=== PATIENT | male | born 1955 | race Caucasian/White ===

== ENCOUNTER 2017-11-12 21:35 | Emergency (ER) | payer OTHER, MEDICARE ==
[~2017-11-12] VITALS: Ht 177.8 cm; Wt 113.4 kg
--- NOTE | 2017-11-12 21:38 | ED GENERAL ADULT ---
History of Present Illness General Chief Complaint: ETOH/Drug Related Complaint Stated Complaint: HIGHWATCH CLEARANCE Source: patient Exam Limitations: no limitations Vital Signs & Intake/Output Vital Signs & Intake/Output Vital Signs Date Time Temp Pulse Resp B/P B/P Pulse O2 O2 Flow FiO2 Mean Ox Delivery Rate 11/13 0726 97.2 75 18 159/79 96 Room Air 11/13 0722 97.2 75 18 159/79 11/13 0515 98.4 90 17 142/80 94 Room Air 11/13 0510 98.4 90 17 142/80 11/13 0310 97.8 93 17 134/82 11/13 0307 97.8 93 17 134/82 93 Room Air 11/13 0034 97.9 83 18 151/88 11/13 0034 97.9 83 18 151/88 95 Room Air 11/13 0032 97 Room Air 11/13 0005 97.0 81 20 166/95 11/13 0005 97.0 81 21 166/95 92 Room Air 11/12 2140 96.4 89 18 169/81 96 Room Air ED Intake and Output 11/13 0000 11/12 1200 Intake Total Output Total Balance Patient 250 lb Weight Weight Reported by Patient Measurement Method Allergies Coded Allergies: No Known Allergies (11/12/17) Triage Nurses Notes Reviewed? yes HPI: Patient has been taking between 1 and 2 mg of Xanax daily for the past few years. Patient wants to stop them so he went [facility] the patient was sent here for evaluation. Patient denies any suicidal or homicidal ideations. Patient denies any coingestion. (Agustina GUAMAN,Derrick Alcaraz) Past History Travel History Traveled to [place] past 21 day No Medical History Any Pertinent Medical History? see below for history Cardiovascular: hypertension Gastrointestinal: GERD Endocrine: diabetes Surgical History Surgical History: RADICAL PROSTECTOMY Psychosocial History Tobacco Use: Never used ETOH Use: denies use Illicit Drug Use: benzodiazepines Family History Hx Contributory? No (Agustina GUAMAN,Derrick Alcaraz) Review of Systems Review of Systems Constitutional: Reports: no symptoms. EENTM: Reports: no symptoms. Respiratory: Reports: no symptoms. Cardiovascular: Reports: no symptoms. GI: Reports: no symptoms. Genitourinary: Reports: no symptoms. Musculoskeletal: Reports: no symptoms. Skin: Reports: no symptoms. Neurological/Psychological: Reports: no symptoms. Hematologic/Endocrine: Reports: no symptoms. Immunologic/Allergic: Reports: no symptoms. All Other Systems: Reviewed and Negative (Agustina GUAMAN,Derrick Alcaraz) Physical Exam Physical Exam General Appearance: well developed/nourished, alert, awake Head: atraumatic, normal appearance Eyes: Bilateral: PERRL, EOMI. Ears, Nose, Throat: normal pharynx, normal ENT inspection, hearing grossly normal Neck: normal inspection, supple, full range of motion Respiratory: normal breath sounds, chest non-tender, no respiratory distress, lungs clear Cardiovascular: regular rate/rhythm, normal peripheral pulses Gastrointestinal: normal bowel sounds, soft, non-tender, no organomegaly Back: normal inspection Extremities: normal inspection, normal capillary refill, normal range of motion, no edema Neurologic/Psych: no motor/sensory deficits, awake, alert, oriented x 3, normal mood/affect Skin: intact, normal color, warm/dry Core Measures ACS in differential dx? No CVA/TIA Diagnosis: No Sepsis Present: No Sepsis Focused Exam Completed? No (Agustina GUAMAN,Derrick Alcaraz) Progress Differential Diagnoses I considered the following diagnoses in my evaluation of the patient: [ BENZODIAZAPINE ABUSE] Plan of Care: Orders Procedure Date/time Status Regular Diet 11/13 B Active CIWA 11/12 2136 Active URINE DRUG SCREEN FOR ER ONLY 11/12 2136 Active URINALYSIS 11/12 2136 Active ETHANOL 11/12 2136 Complete COMPREHENSIVE METABOLIC PANEL 11/12 2136 Complete CBC WITHOUT DIFFERENTIAL 11/12 2136 Complete Current Medications Sig/Javon Start time Last Medication Dose Stop Time Status Admin Losartan Potassium 50 MG DAILY 11/13 1000 UNVr (Cozaar) Metformin HCl 1,000 MG 0800,1700 11/13 0800 UNVr 11/13 (Glucophage) 0747 Omeprazole 20 MG DAILY AC 11/13 0700 UNVr 11/13 (Prilosec) 0706 Laboratory Tests 11/13/17 0826: Methadone Screen Pending, Barbiturate Screen Pending, Ur Phencyclidine Scrn Pending, Amphetamines Screen Pending, U Benzodiazepines Scrn Pending, Urine Cocaine Screen Pending, Urine Cannabis Screen Pending, Urine Color Pending, Urine Clarity Pending, Urine pH Pending, Ur Specific [place] Pending, Urine Protein Pending, Urine Ketones Pending, Urine Nitrite Pending, Urine Bilirubin Pending, Urine Urobilinogen Pending, Ur Leukocyte Esterase Pending, Ur Microscopic Pending, Urine Hemoglobin Pending, Urine Glucose Pending 11/12/17 2335: Anion Gap 13, Estimated GFR > 60, BUN/Creatinine Ratio 20.0, Glucose 129 H, Calcium 9.9, Total Bilirubin 0.4, AST 14 L, ALT 15 L, Alkaline Phosphatase 53, Total Protein 6.9, Albumin 3.8, Globulin 3.1, Albumin/Globulin Ratio 1.2, CBC w Diff NO MAN DIFF REQ, RBC 3.48 L, MCV 84.1, MCH 27.4, MCHC 32.6 L, RDW 15.6 H , MPV 7.5, Gran % 61.3, Lymphocytes % 22.3, Monocytes % 8.2, Eosinophils % 7.6 H, Basophils % 0.6, Absolute Granulocytes 3.6, Absolute Lymphocytes 1.3, Absolute Monocytes 0.5, Absolute Eosinophils 0.4, Absolute Basophils 0, Serum Alcohol < 10.0 Initial ED EKG: none Hand-Off Endorsed To: Susy GUAMAN,James Padilla Endorsed Time: 0700 Pending: other (RE-EVAL) (Agustina GUAMAN,Derrick Alcaraz) Comments: 11/13/2017 8:52:32 AM according to [facility], transportation will be available at about 10:30 this morning. (Susy GUAMAN,James Padilla) Departure Departure Disposition: STILL A PATIENT Condition: Stable Clinical Impression Primary Impression: Benzodiazepine abuse Additional Instructions: GO STRAIGHT TO [facility] Departure Forms: Customer Survey General Discharge Information (Derrick Berrios MD) Critical Care Note Critical Care Note Critical Care Time: non-applicable (Derrick Berrios MD)
[2017-11-12 23:52] LABS: ABSOLUTE BASOPHIL COUNT 0 /CUMM (0.0-0.2); ABSOLUTE EOSINOPHIL COUNT 0.4 /CUMM (0.0-0.7); ABSOLUTE GRANULOCYTE CT 3.6 /CUMM (1.4-6.5); ABSOLUTE LYMPH COUNT 1.3 /CUMM (1.2-3.4); ABSOLUTE MONOCYTE COUNT 0.5 /CUMM (0.10-0.60); BASOPHIL % 0.6 % (0.0-2.0); EOSINOPHIL % 7.6 % (0-5); GRANULOCYTE % 61.3 % (42.2-75.2); HEMATOCRIT 29.3 % (42-52); MEAN CORPUSCULAR HGB 27.4 PG (27.0-31.0); MEAN CORPUSCULAR HGB CONC 32.6 G/DL (33.0-37.0); MEAN CORPUSCULAR VOLUME 84.1 FL (80.0-94.0); MEAN PLATELET VOLUME 7.5 FL (7.4-10.4); PLATELET COUNT 340 /CUMM (130-400); RBC DISTRIBUTION WIDTH 15.6 % (11.5-14.5); RED BLOOD CELL CT 3.48 /CUMM (4.70-6.10); WHITE BLOOD CELL COUNT 5.8 /CUMM (4.8-10.8)
[2017-11-13] MEDS ORDERED: METFORMIN HCL500 M3 PO (10:40)
[2017-11-13] MEDS ORDERED: OMEPRAZOLE20 M2 PO (10:40)
[2017-11-13] MEDS ORDERED: PRAVASTATIN SOD10 M2 PO (10:40)
[2017-11-13] MEDS ORDERED: AMITRIPTYLINE100 M2 PO (10:41)
[2017-11-13] MEDS ORDERED: GABAPENTIN300 M2 PO (10:41)
[2017-11-13 10:45] VITALS: BP 141/84
[2017-11-18] MEDS ORDERED: LOSARTAN POTASS50 M1 PO (15:21)
[2017-11-18] MEDS ORDERED: CLONIDINE HCL0.1 MG PO (15:21)
[2017-11-18] MEDS ORDERED: GABAPENTIN600 M1 PO (15:22)
[2017-11-18] MEDS ORDERED: IBUPROFEN600 M1 PO (15:23)
[2017-11-18] MEDS ORDERED: PROAIR HFA8.5 GM INH (15:24)
== END 2017-11-13 11:54 ==
LOC: ERH 21:35
PROVIDERS: Emergency Medicine
DX: F13.10 Sedative, hypnotic or anxiolytic abuse, uncomplicated (principal)
CPT/HCPCS: 80307; 81001; G0480